=== PATIENT | female | born 1990 | race Caucasian/White ===

== ENCOUNTER → 2020-07-13 | Outpatient (CLI) | payer BC ==
[~2020-07-13] MED LIST: ATOR20TA37 PO; CETI10TA76 PO; IBUP-1222 PO; METF500T17 PO; OXYC-302 PO
[2020-07-13 15:11] LABS: BASOPHILS % (AUTO) 1 % (0-1); EOSINOPHILS % (AUTO) 1 % (1-7); LYMPHOCYTES % (AUTO) 28 % (22-44); MEAN CORPUSCULAR HEMOGLOBIN 29.6 pg (27.0-34.8); MEAN CORPUSCULAR HGB CONC 33.5 g/dL (32.4-35.8); MEAN PLATELET VOLUME 7.3 fL (7.4-10.4); MONOCYTES % (AUTO) 7 % (2-9); NEUTROPHILS % (AUTO) 63 % (42-75); PLATELET COUNT 389 x10^3/uL (130-400); RED BLOOD COUNT 4.93 x10^6/uL (3.82-5.3); RED CELL DISTRIBUTION WIDTH 12.9 % (9.6-15.2)
[2020-07-13 15:12] LABS: MD NO
[2020-07-13 15:16] LABS: MICROSCOPIC NOT IND
[2020-07-13 15:23] LABS: ALBUMIN 4.2 g/dL (3.4-5.0); ANION GAP 6 mmol/L (5-15); CALCIUM 9.1 mg/dL (8.5-10.1); CHLORIDE 111 mmol/L (98-107)
[2020-07-13 15:29] LABS: ALANINE AMINOTRANSFERASE 33 U/L (12-78); ALKALINE PHOSPHATASE 58 U/L (45-117); BILIRUBIN,TOTAL 0.4 mg/dL (0.2-1.0); CREATININE 0.79 mg/dL (0.55-1.02); TOTAL PROTEIN 7.8 g/dL (6.4-8.2)
== END | disposition home or self-care (01) ==
LOC: STAR 14:16
PROVIDERS: ATTEND Obstetrics & Gynecology Gynecology
DX: Z01.812 Encounter for preprocedural laboratory examination (principal); Z20.828 Contact with and (suspected) exposure to other viral communicable diseases; R32 Unspecified urinary incontinence; N81.6 Rectocele; N81.10 Cystocele, unspecified
CPT/HCPCS: 36415; 80053; 81003; 84702; 85025; 87635; 93005

== ENCOUNTER 2020-07-19 05:43 | Day surgery (SDC) | payer BC ==
[~2020-07-19] VITALS: Ht 160 cm; Wt 96.9 kg
[2020-07-19 06:11] VITALS: BP 135/83
[2020-07-19] MEDS ORDERED: LACTATED RINGERS 1,000 ML IV SCH (06:30)
[2020-07-19] MEDS ORDERED: CHLORHEXIDINE 15 ML UDC MM ONE (06:30)
[2020-07-19] MEDS ORDERED: LIDOCAINE-MPF 1%, 2ML INFIL ONE (06:30)
[2020-07-19] MEDS ORDERED: MIDAZOLAM 1 MG/ML, 2ML ONE (06:45)
[2020-07-19] MEDS ORDERED: FENTANYL PF 250 MCG/5ML ONE (06:45)
[2020-07-19 06:48] LABS: HCG UR SG 1.024 (1.003-1.030)
[2020-07-19] MEDS ORDERED: BUPIVACAINE/PF 0.25% ONE (06:57)
[2020-07-19] MEDS ORDERED: KETOROLAC 30 MG/1 ML ONE (06:57)
[2020-07-19] MEDS ORDERED: SILVER NITRATE STICK TP ONE (06:57)
[2020-07-19] MEDS ORDERED: LIDOCAINE 1%, 20ML ONE (06:58)
[2020-07-19] MEDS ORDERED: NEOMY/POLYMYXIN B GU IRR. 1 ML ONE (06:58)
[2020-07-19] MEDS ORDERED: EPINEPHRINE 1 MG/ML, 1ML ONE (06:58)
[2020-07-19] MEDS ORDERED: PHENYLEPHRINE 10 MG/ML ONE (07:13)
[2020-07-19] MEDS ORDERED: FENTANYL PF 100 MCG/2ML IV PRN (07:30)
[2020-07-19] MEDS ORDERED: PROMETHAZINE 25 MG/ML, 1ML IVPush PRN (07:30)
[2020-07-19] MEDS ORDERED: LABETALOL 5MG/ML, 20ML IV PRN (07:30)
[2020-07-19] MEDS ORDERED: OXYcodone 5 MG/5 ML ORAL.SOL UDC PO PRN (07:30)
[2020-07-19] MEDS ORDERED: MEPERIDINE/PF 25MG/0.5ML IVPush PRN (07:30)
[2020-07-19] MEDS ORDERED: hydrALAzine 20 MG/ML, 1ML IV PRN (07:30)
[2020-07-19] MEDS ORDERED: morphine SULFATE 10 MG/ML, 1ML IVPush PRN (07:30)
[2020-07-19] MEDS ORDERED: ACETAMINOPHEN 325 MG TABLET PO PRN (07:30)
[2020-07-19] MEDS ORDERED: HALOPERIDOL 5 MG/ML IV PRN (07:30)
[2020-07-19] MEDS ORDERED: HYDROmorphone 1 MG/ML, 1ML INJ IVPush PRN (07:30)
[2020-07-19] MEDS ORDERED: NEOSTIGMINE 1 MG/ML, 10ML ONE (08:14)
[2020-07-19] MEDS ORDERED: DEXAMETHASONE 4 MG/ML, 1ML ONE (08:14)
[2020-07-19] MEDS ORDERED: GLYCOPYRROLATE 0.2MG/1ML, 5ML ONE (08:14)
[2020-07-19] MEDS ORDERED: ONDANSETRON 2MG/ML, 2ML ONE ×2 (08:14→09:43)
[2020-07-19] MEDS ORDERED: PROPOFOL 10 MG/ML, 20ML ONE (08:14)
[2020-07-19] MEDS ORDERED: CEFAZOLIN 1,000 MG ONE (08:14)
[2020-07-19] MEDS ORDERED: ROCURONIUM 10MG/ML,5ML ONE (08:14)
[2020-07-19] MEDS ORDERED: FENTANYL PF 100 MCG/2ML ONE ×3 (08:37→10:20)
[2020-07-19] MEDS ORDERED: FLUORESCEIN SODIUM 500 MG/5 ML ONE (08:54)
[2020-07-19] MEDS ORDERED: MANNITOL PMX 20% 500 ML ONE (09:11)
[2020-07-19] MEDS ORDERED: MANNITOL 0.25 GM/ML, 50ML IVPB ONE (09:17)
[2020-07-19] MEDS ORDERED: OXYcodone 5 MG/5 ML ORAL.SOL UDC ONE (10:20)
[2020-07-19] MEDS ORDERED: ACETAMINOPHEN 650 MG/20.3 ML UDC ONE (10:20)
[2020-07-19] MEDS ORDERED: MEPERIDINE/PF 25MG/ML,1ML ONE (10:23)
[2020-07-19] MEDS ORDERED: PROMETHAZINE 25 MG/ML, 1ML ONE (10:29)
== END 2020-07-19 12:40 | disposition home or self-care (01) ==
LOC: OUT 05:43
PROVIDERS: ATTEND Obstetrics & Gynecology Gynecology
DX: Z30.2 Encounter for sterilization (principal); N83.11 Corpus luteum cyst of right ovary; N39.46 Mixed incontinence; N81.10 Cystocele, unspecified; N81.6 Rectocele; N94.10 Unspecified dyspareunia; N89.8 Other specified noninflammatory disorders of vagina; E78.5 Hyperlipidemia, unspecified; F32.9 Major depressive disorder, single episode, unspecified; Z79.84 Long term (current) use of oral hypoglycemic drugs; Z79.899 Other long term (current) drug therapy; Z88.8 Allergy status to other drugs, medicaments and biological substances; Z98.890 Other specified postprocedural states
CPT/HCPCS: 36415; 57260; 57288; 58670; 81025; 82962; 86850; 86900; 88302; C1771; J0171; J0690; J1100; J1885; J2150; J2250; J2370; J2405; J2550; J2704; J2710; J3010; J7120